=== PATIENT | male | born 1990 | race Two or more races ===

== ENCOUNTER 2017-06-28 00:24 | Emergency (ER) | payer SELFPAY ==
[2017-06-28 00:37] VITALS: BP 125/87; PULSE 79; RESP 16; TEMP 98.1; O2SAT 97
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
== END 2017-06-28 01:39 | disposition home or self-care (01) ==
DX: S63.115A Dislocation of metacarpophalangeal joint of left thumb, initial encounter (principal); W22.8XXA Striking against or struck by other objects, initial encounter; Y99.8 Other external cause status; Y93.72 Activity, wrestling